=== PATIENT | female | born 1970 | race Caucasian/White ===

== ENCOUNTER 2021-07-11 02:19 | Emergency (ER) | payer MEDICAID ==
[2021-07-11 02:46] LABS: BILIRUBIN,URINE NEGATIVE (NEGATIVE); GLUCOSE, URINE (UA) NEGATIVE (NEGATIVE); KETONES,URINE (UA) NEGATIVE (NEGATIVE); LEUKOCYTE ESTERASE, URINE NEGATIVE (NEGATIVE); NITRITE,URINE NEGATIVE (NEGATIVE); OCCULT BLOOD,URINE LARGE (NEGATIVE); PROTEIN,URINE NEGATIVE (NEGATIVE); UROBILINOGEN,URINE 0.2 (NORMAL) E.U./dL (NORMAL)
[2021-07-11] MEDS ORDERED: SODIUM CHLORIDE 0.9% 1,000 ML IV STA (02:53)
[2021-07-11] MEDS ORDERED: KETOROLAC 30 MG/ML VIAL IVP STA (02:53)
[2021-07-11] MEDS ORDERED: ONDANSETRON 4 MG/2 ML VIAL IVP STA (02:53)
[2021-07-11 02:55] LABS: CLARITY,URINE CLEAR (CLEAR)
--- NOTE | 2021-07-11 02:56 | ED Physician Documentation ---
History of Present Illness - Stated complaint Stated Complaint: RLQ PAIN/V/N/BLOOD IN URINE - Chief complaint Chief Complaint: Abd Pain - History obtained from History obtained from: Patient - Additonal information Additional information: Patient comes emergency department chief complaint of right flank pain that had around 2100 tonight. She states initially, it was just a discomfort that was not necessarily a pain but more of a pressure. However, 2 hours later, she had sudden onset of sharp pain in the same area that radiated back into her kidney area and down into her right lower quadrant. Patient states that when the pain initially started, she had a flash of blood in her urine but that this cleared over the hours. She has not had any dysuria. She finally decided to come to the emergency department because it seemed the pain had intensified and she was very nauseated. Patient states she vomited violently and believes she has been now completely emptied her stomach. No fevers or chills. No known history of kidney stone. No history of appendicitis. Patient states she still has her gallbladder and the Reproductive organs, as well. Review of Systems Ten Systems: 10 systems reviewed and negative Constitutional: reports: Reviewed and negative Eyes: reports: Reviewed and negative Ears: reports: Reviewed and negative Nose: reports: Reviewed and negative Throat: reports: Reviewed and negative Cardiac: reports: Reviewed and negative Respiratory: reports: Reviewed and negative GI: reports: Abdominal Pain : reports: Reviewed and negative Skin: reports: Reviewed and negative Musculoskeletal: reports: Back pain Neurologic: reports: Reviewed and negative Psychiatric: reports: Reviewed and negative Endocrine: reports: Reviewed and negative Immunocompromised: reports: Reviewed and negative PD PAST MEDICAL HISTORY - Past Medical History Past Medical History: No - Past Surgical History Past Surgical History: No - Present Medications Home Medications: Ambulatory Orders Medication Instructions Recorded Confirmed HYDROcod/ACETAM 5/325 [[place] 5/325] 1 - 2 tablet PO Q6H PRN #14 tablet 07/11/21 Ondansetron Odt [Zofran Odt] 4 mg TL Q6H PRN #10 tablet 07/11/21 Tamsulosin [Flomax] 1 cap PO DAILY #7 cap 07/11/21 - Allergies Allergies/Adverse Reactions: Allergies Allergy/AdvReac Type Severity Reaction Status Date / Time No Known Drug Allergies Allergy Verified 07/11/21 02:38 - Social History Does the pt smoke?: No Smoking Status: Never smoker Does the pt drink ETOH?: No Does the pt have substance abuse?: No - Immunizations Immunizations are current?: No PD ED PE NORMAL - Vitals Vital signs reviewed: Yes - General General: Alert and oriented X 3, No acute distress (Patient appears mildly uncomfortable but otherwise no distress.), Well developed/nourished - HEENT HEENT: Atraumatic, PERRL, EOMI, Moist mucous membranes - Neck Neck: Supple, no meningeal sign - Cardiac Cardiac: RRR, No murmur - Respiratory Respiratory: No respiratory distress, Clear bilaterally - Abdomen Abdomen: Soft, Non tender, Non distended - Back Back: Other (Mild right CVA tenderness ) - Derm Derm: Normal color, Warm and dry, No rash - Extremities Extremities: No deformity, No edema - Neuro Neuro: Alert and oriented X 3, 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, Normal speech, Other (Grossly normal) - Psych Psych: Normal mood, Normal affect Results - Vitals Vitals: Vital Signs - 24 hr 07/11/21 07/11/21 02:35 05:00 Temperature 37.2 C 36.6 C Heart Rate 82 76 Respiratory 18 16 Rate Blood Pressure 161/89 H 147/86 H O2 Saturation 97 98 Oxygen O2 Source Room air - Labs Labs: Laboratory Tests 07/11/21 02:24 Urine Color YELLOW Urine Clarity CLEAR Urine pH 5.0 Ur Specific [place] >=1.030 H Urine Protein NEGATIVE Urine Glucose (UA) NEGATIVE Urine Ketones NEGATIVE Urine Occult Blood LARGE H Urine Nitrite NEGATIVE Urine Bilirubin NEGATIVE Urine Urobilinogen 0.2 (NORMAL) Ur Leukocyte Esterase NEGATIVE Urine RBC 11-25 H Urine WBC 0-3 Ur Squamous Epith Cells MOD Squamous H Urine Bacteria Rare Ur Microscopic Review INDICATED Urine Culture Comments NOT INDICATED - Rads (name of study) CT abd/pelvis Radiology: Prelim report reviewed, EMP read indepedently, See rad report (5mm stone R ureter) PD MEDICAL DECISION MAKING - ED course Complexity details: reviewed results, re-evaluated patient, considered differential, d/w patient ED course: The patient was treated with IV fluids, Toradol, and Zofran, and worked up with urinalysis and CT scan of the abdomen and pelvis without contrast. CT showed a 5 mm stone in the distal right ureter. Patient was found to be feeling better after symptomatic treatment in the emergency department. We have discussed symptomatic management at home and the need to drink lots of fluids to help push the stone out. We have discussed the usual indications for return. Departure - Departure Disposition: 01 Home, Self Care Clinical Impression: Kidney stone on right side Condition: Stable Instructions: ED Stone Renal W Colic Prescriptions: Tamsulosin [Flomax] 1 cap PO DAILY #7 cap HYDROcod/ACETAM 5/325 [[place] 5/325] 1 - 2 tablet PO Q6H PRN #14 tablet PRN Reason: Pain Ondansetron Odt [Zofran Odt] 4 mg TL Q6H PRN #10 tablet PRN Reason: Nausea / Vomiting Comments: As we have discussed, you have a 5 mm stone in the right ureter (tube leading from kidney to bladder). This has traveled almost all the way to the kidney, and is expected to pass today. However, it is possible (though unlikely) that it will take a few days to a week to pass. You can help it pass by drinking lots of water and taking the Flomax (tamsulosin) prescribed. You may take the medication for pain and nausea, as needed. Your precriptions have been electronically transmitted to the [facility]. If you develop fever, increasing back pain, and pain/burning with urination, please seek medical re- evaluation immediately. Discharge Date/Time: 07/11/21 05:40
[2021-07-11 03:05] LABS: BACTERIA,URINE Rare /HPF (None Seen); SQUAMOUS EPITHELIAL CELL,UR MOD Squamous (<= Few); WBC,URINE 0-3 /HPF (0-5)
[2021-07-11] MEDS ORDERED: TAMSULOSIN 0.4 MG CAPSULE PO STA (05:09)
[2021-07-11 05:28] VITALS: BP 147/86
--- NOTE | 2021-07-11 07:50 | CT Report ---
PROCEDURE: Abdomen/Pelvis WO INDICATIONS: Right flank pain TECHNIQUE: Noncontrast 5 mm thick sections acquired from the diaphragms to the symphysis. 5 mm coronal and sagi ttal reformats were then performed. For radiation dose reduction, the following was used: automated exposure control, adjustment of mA and/or kV according to patient size. COMPARISON: None. FINDINGS: Inferior chest: No focal consolidation, pleural effusion, or pneumothorax. No cardiomegaly or perica rdial effusion. Gallbladder: The gallbladder is distended with a smooth wall. Biliary tree: No intra-or extrahepatic biliary ductal dilatation. Liver: The liver demonstrates normal appearance. Spleen: Normal size and morphology is seen. Pancreas: Normal morphology without masses or inflammatory changes. Adrenals: Normal size without masses. Kidneys: Mild right hydronephrosis/hydroureter without significant perinephric stranding. A 5 mm calc ulus is seen in the distal ureter (series 6, image 73). No appreciable nephrolithiasis. No left hydro nephrosis or hydroureter. Vasculature: No evidence of aneurysm or other significant vascular pathology. Lymphatic system: No pathologic enlargement by size criteria. Bowel: No intestinal obstruction. Normal appendix. Peritoneum/Retroperitoneum: No free intraperitoneal gas or large collection. Urinary bladder: The urinary bladder is distended with a smooth thin wall. Pelvic organs: No significant abnormality. Bones/soft tissues: No significant abnormality. Trace fat-containing periumbilical hernia. IMPRESSION: 1.Mild right hydronephrosis/hydroureter with 5 mm calculus in the distal ureter. Concordant interpretation with the preliminary report. Reviewed by: Derek Navarrete MD on 07/11/2021 7:49 AM PDT Approved by: Derek Navarrete MD on 07/11/2021 7:49 AM PDT Station ID: [id number]
== END 2021-07-11 05:40 | disposition home or self-care (01) ==
LOC: ED 02:19
DX: N13.2 Hydronephrosis with renal and ureteral calculous obstruction (principal)
CPT/HCPCS: 74176; 81001; 96374; 99283; 99284; A9270; 81003; 87086

== ENCOUNTER 2022-11-01 11:22 | Emergency (ER) | payer MEDICAID ==
--- NOTE | 2022-11-01 11:30 | ED Physician Documentation ---
PD HPI FOCAL NEURO - Stated complaint Stated Complaint: R SIDE DROOP - Chief complaint Chief Complaint: Neuro - History obtained from History obtained from: Patient - History of Present Illness Timing - onset: How many days ago (4) Timing - duration: Days (4) Timing - details: Gradual onset, Still present Severity of deficit: Mild Weakness: Face, Right. No: Arm, Leg Numbness: No: Face, Arm, Leg Associated symptoms: No: Headache, Nausea / vomiting, Syncope, Head injury Contributing factors: negative: Anticoagulated, Atrial fibrillation Baseline status: positive: A&OX3, ambulatory, indep Similar symptoms before: Has not had sx before Recently seen: Not recently seen (went to [facility] and referred to ER for further eval timely.) Review of Systems Constitutional: denies: Fever, Chills Ears: denies: Loss of hearing, Ear pain, Tinnitus/ringing Nose: denies: Rhinorrhea / runny nose, Congestion Throat: denies: Dental pain / toothache, Sore throat Skin: reports: Rash (has had persistent rash under breasts and inguinal area not fully responsive to OTC antifungal clotrimazole.) PD PAST MEDICAL HISTORY - Past Medical History Cardiovascular: None Respiratory: None Neuro: None Endocrine/Autoimmune: None - Past Surgical History Past Surgical History: No - Present Medications Home Medications: Ambulatory Orders Medication Instructions Recorded Confirmed HYDROcod/ACETAM 5/325 [[place] 5/325] 1 - 2 tablet PO Q6H PRN #14 tablet 07/11/21 Ondansetron Odt [Zofran Odt] 4 mg TL Q6H PRN #10 tablet 07/11/21 Tamsulosin [Flomax] 1 cap PO DAILY #7 cap 07/11/21 Fluconazole [Diflucan] 150 mg PO Q3D #2 tablet 11/01/22 Mupirocin 2% Oint [Bactroban 2% 1 applic TOP TID #15 gm 11/01/22 Oint] Nystatin [Nystop] 1 applic TOP BID #30 gm 11/01/22 dexAMETHasone [Decadron] 4 mg PO DAILY #5 tablet 11/01/22 - Allergies Allergies/Adverse Reactions: Allergies Allergy/AdvReac Type Severity Reaction Status Date / Time No Known Drug Allergies Allergy Verified 11/01/22 11:26 - Social History Does the pt smoke?: No Smoking Status: Never smoker Does the pt drink ETOH?: No Does the pt have substance abuse?: No - Immunizations Immunizations are current?: No PD ED PE NORMAL - Vitals Vital signs reviewed: Yes - General General: Alert and oriented X 3, No acute distress, Well developed/nourished - HEENT HEENT: PERRL, EOMI - Neck Neck: Supple, no meningeal sign, No adenopathy, No bruit - Cardiac Cardiac: RRR, No murmur - Respiratory Respiratory: Clear bilaterally - Derm Derm: Normal color, Warm and dry, Other (She does have a uniform redness with mild speckled edge under both breasts. She states it is present in the inguinal area to and deferred inspection of that.) - Extremities Extremities: Normal ROM s pain, No edema, No calf tenderness / cord - Neuro Neuro: Alert and oriented X 3, No sensory deficit, Normal speech, Other (There is a mild to moderate right facial droop most noticeable at the corner of the mouth but also the cheek. There may be a subtle asymmetry on the forehead and with eye closure. Arms and legs show normal strength and symmetric sensation. normal gait. Negative Romberg and no ataxia with gait.) Results - Vitals Vitals: Vital Signs - 24 hr 11/01/22 11/01/22 11/01/22 11:26 12:12 13:27 Temperature 36.5 C Heart Rate 96 83 Respiratory 16 16 17 Rate Blood Pressure 160/100 H 154/100 H O2 Saturation 99 100 Oxygen O2 Source Room air - Rads (name of study) brain MRI Radiology: Prelim report reviewed, See rad report (no acute abnormalities. ) PD Medical Decision Making - ED course Complexity details: reviewed results, considered differential (The patient has had 4 days of progressive weakness of the right side of the face. She is able t o eat and drink okay without dribbling or drooling. She denies feeling of eye dryness. She denies headache. No notable weakness of the arm or leg. Cetnral vs. peripheral.), d/w patient Reviewed Lab Results: There was perhaps subtle asymmetry of the forehead but not convincingly so. I cannot fully affirm that it was a Edwards's palsy peripheral versus a central lesion. Discussion with the patient about the uncertainty and shared decision was for obtaining a brain MRI to look for central causes. The brain MRI was normal and in particular no signs of stroke, mass effect, tumors or MS. Therefore we revert to the idea of a peripheral cause. There is no signs of ear canal or eardrum abnormality. No facial swelling or masses. She does not have any history of cold sores and so herpetic causes less likely. She is local resident and has not had any travel to [place] endemic areas in the past year. 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 Departure - Departure Disposition: 01 Home, Self Care Clinical Impression: Yeast dermatitis, Facial droop, Facial nerve palsy Clinical Impression: (Ruled Out): Cerebrovascular accident (CVA) Condition: Stable Record reviewed to determine appropriate education?: Yes Instructions: ED [place] Palsy Prescriptions: Mupirocin 2% Oint [Bactroban 2% Oint] 1 applic TOP TID #15 gm dexAMETHasone [Decadron] 4 mg PO DAILY #5 tablet Fluconazole [Diflucan] 150 mg PO Q3D #2 tablet Nystatin [Nystop] 1 applic TOP BID #30 gm Comments: Your brain MRI is normal without any signs of stroke, tumors, swelling, MS or other mass effect. Your facial droop therefore seems to relate to a peripheral nerve facial weakness (Edwards palsy/facial nerve palsy). This can relate to an infectious cause but no obvious signs of that for you. Otherwise and unexplained inflammation of the nerve. This will commonly get treated with mainly time for to resolve but it can be improved with some anti- inflammatory as well. Regarding your skin rash which would be unrelated to the facial palsy, it does look like a yeast infection and so I would treat it with an antifungal. We can use oral and topical. On the inguinal parts that are a bit more raw, you can also use an antibiotic ointment in case of secondary bacterial infection. This is called mupirocin. I sent prescriptions for your medicines to the [facility] pharmacy. Follow-up with your primary care or [facility] if not resolving steadily over the next few weeks.
--- NOTE | 2022-11-01 13:06 | MRI Report ---
PROCEDURE: BRAIN WO INDICATIONS: right facial droop 4 days TECHNIQUE: Noncontrast axial T1 spin echo, axial T2 fast spin echo, sagittal and axial FLAIR, coronal T2 fast sp in echo, axial gradient echo, axial diffusion and ADC through the brain. COMPARISON: None. FINDINGS: Image quality: Excellent. CSF Spaces: Basal cisterns are patent. No extra-axial fluid collections. Ventricles are normal in size and shape. Brain: No intracranial masses or hemorrhage. Zaidi/white matter interface is normal. Brainstem appe ars normal. Diffusion-weighted images demonstrate no acute ischemic insult. No chronic ischemic ins ults. Normal intravascular flow voids are present. Skull and face: Calvarium has normal marrow signal. Orbits appear normal. Sinuses: Sinuses and mastoids are clear. IMPRESSION: No evidence acute intracranial abnormality. Reviewed by: Chinedu Lee MD on 11/01/2022 1:05 PM PST Approved by: Chinedu Lee MD on 11/01/2022 1:05 PM [facility] Station ID: [id number]
[2022-11-01] MEDS ORDERED: DEXAMETHASONE 10 MG/ML VIAL PO STA (13:25)
[2022-11-01] MEDS ORDERED: FLUCONAZOLE 100 MG TABLET PO STA (13:25)
[2022-11-01] MEDS ORDERED: CHERRY SYRUP 10 ML UDC PO ONE (13:25)
[2022-11-01 13:28] VITALS: BP 154/100
== END 2022-11-01 13:41 | disposition home or self-care (01) ==
LOC: ED 11:22
DX: G51.0 Bell's palsy (principal); B37.2 Candidiasis of skin and nail
CPT/HCPCS: 70551; 99284; A9270